=== PATIENT | female | born 1945 | race Caucasian/White ===

== ENCOUNTER 2018-06-25 09:18 | Day surgery (SDC) | payer MEDICARE ==
[2018-06-25] MEDS ORDERED: DEMEROL 50 MG SDV IV ONE (09:19)
[2018-06-25] MEDS ORDERED: VERSED 5 MG/5 ML IV ONE (09:19)
[2018-06-25] MEDS ORDERED: Lactated Ringers 1,000 ML IV ONE (09:52)
[2018-06-25] MEDS ORDERED: CEFAZOLIN 2 GM-D5W BAG** 2 GM/50 ML ML IV SCH (10:30)
[2018-06-25] MEDS ORDERED: Lactated Ringers 1,000 ML IV SCH (10:30)
--- NOTE | 2018-06-25 12:43 | HP ---
DATE OF SURGERY: 06/25/2018 ANTICIPATED PROCEDURE: Port placement. HISTORY OF PRESENT ILLNESS: The patient has sigmoid cancer requiring port and presents for such. PAST MEDICAL HISTORY: ALLERGIES: PER THE CHART. MEDICATIONS: Metoprolol, pravastatin, lansoprazole. PAST SURGICAL HISTORY: Sigmoid colon resection. SOCIAL HISTORY: Negative. FAMILY HISTORY: Negative. PHYSICAL EXAMINATION: VITAL SIGNS: Normal. CHEST: Clear. COR: Regular. IMPRESSION: A patient requiring a port for sigmoid colon cancer chemotherapy.
[2018-06-25] MEDS ORDERED: XYLOCAINE 1% HCL 20 ML MDV ONE (12:58)
--- NOTE | 2018-06-25 14:36 | XRAY ---
Indication: Port placement. Intraoperative fluoroscopy was provided for 2 seconds. Single digital spot image submitted for interpretation demonstrates central venous access catheter tip projecting right of midline presumed in the SVC. Correlate with intraoperative findings/report.
[2018-06-25 14:54] VITALS: O2SAT 97
[2018-06-25 15:16] VITALS: BP 138/95; PULSE 69
--- NOTE | 2018-06-29 10:38 | OP ---
SURGERY DATE/TIME: 06/25/2018 1333 PREOPERATIVE DIAGNOSIS: Inadequate access for chemotherapy. POSTOPERATIVE DIAGNOSIS: Inadequate access for chemotherapy. PROCEDURE: Tunnel port fluoroscopic C-arm guidance left subclavian-atrial. SURGEON: Sabino Geronimo M.D. DIRECTOR SOFTWARE DEVELOPMENT: Medical Student III. ANESTHESIA: IV sedation. COMPLICATIONS: None. CONDITION: Stable. INDICATION: A patient requiring access. DESCRIPTION OF PROCEDURE: Routine prep and drape. Venipuncture obtained. Guide wire placed. Catheter is placed. Good aspiration of low pressure venous blood. Flushed and secured with 3-0 Prolene, 3-0 Vicryl, 4-0 Vicryl and Steri-Strips. The patient tolerated the procedure satisfactorily.
== END 2018-06-25 15:10 | disposition home or self-care (01) ==
LOC: SDC 09:18 → EDSTATUS 09:20 → SDC 15:10
PROVIDERS: ATTEND Surgery
PROC: 05H633Z Insertion of Infusion Device into Left Subclavian Vein, Percutaneous Approach (ICD-10-PCS; principal; 2018-06-25)
DX: C18.7 Malignant neoplasm of sigmoid colon (principal); Z90.49 Acquired absence of other specified parts of digestive tract; Z79.899 Other long term (current) drug therapy
CPT/HCPCS: 77001; 94250; C1788; J0690; J1642; J2175; J2250

== ENCOUNTER 2019-09-30 07:26 | Day surgery (SDC) | payer MEDICARE, OTHER ==
[~2019-09-30 07:26] MED LIST: XYLOCAINE 1% HCL 20 ML MDV ONE
[2019-09-30] MEDS ORDERED: VERSED 5 MG/5 ML IV ONE (07:27)
[2019-09-30] MEDS ORDERED: DEMEROL 50 MG SDV IV ONE (07:27)
--- NOTE | 2019-09-30 07:55 | HP ---
DATE OF SURGERY: 09/30/2019 ANTICIPATED PROCEDURE: Port removal. HISTORY OF PRESENT ILLNESS: The patient presents for port removal. She completed therapy. PAST MEDICAL HISTORY: ALLERGIES: PER THE CHART. MEDICATIONS: Per the chart. PAST SURGICAL HISTORY: Previous port. SOCIAL HISTORY: Negative. FAMILY HISTORY: Negative. REVIEW OF SYSTEMS: CVS: Negative. PULMONARY: Negative. PHYSICAL EXAMINATION: VITAL SIGNS: Normal. CHEST: Clear. COR: Regular. IMPRESSION: Undesired port. PLAN: Port removal.
[2019-09-30] MEDS ORDERED: Lactated Ringers 1,000 ML IV SCH (08:00)
[2019-09-30] MEDS ORDERED: Lactated Ringers 1,000 ML IV ONE (08:01)
--- NOTE | 2019-09-30 10:22 | OP ---
SURGERY DATE/TIME: 09/30/2019 0920 PREOPERATIVE DIAGNOSIS: Undesired Port-A-Cath. POSTOPERATIVE DIAGNOSIS: Undesired Port-A-Cath. PROCEDURE: Port removal. SURGEON: Sabino Geronimo M.D. ANESTHESIA: 15 minutes monitored IV sedation with local. COMPLICATIONS: None. CONDITION: Stable. INDICATION: A patient requiring removal or old access. She has completed therapy. DESCRIPTION OF PROCEDURE: She is taken to surgery. IV sedation titrated. Oximetry kept over 90%. Comfort level satisfactory. 1% lidocaine. Port was incised. The catheter totally removed. It had a nice smooth tip. It was about 20 cm. The port itself was removed. The catheter tunnel site was closed with 3-0 Vicryl, subcu 3-0 Vicryl, skin closed with 4-0 Vicryl. Steri-Strips applied. Sterile dressing applied. The patient tolerated the procedure satisfactorily.
[2019-09-30 10:42] VITALS: BP 138/63; PULSE 70; O2SAT 94
== END 2019-09-30 10:45 | disposition home or self-care (01) ==
LOC: SDC 07:26
PROVIDERS: ATTEND Surgery
DX: Z45.2 Encounter for adjustment and management of vascular access device (principal)
CPT/HCPCS: J2175; J2250